=== PATIENT | female | born 1990 | race Caucasian/White ===

== ENCOUNTER 2017-02-06 16:29 | Emergency (ER) | payer OTHER ==
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
[2017-02-06 18:16] VITALS: BP 121/71
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
== END 2017-02-06 18:14 | disposition home or self-care (01) ==
LOC: MW.ED 16:29
DX: S80.01XA Contusion of right knee, initial encounter (principal); Z88.1 Allergy status to other antibiotic agents; Z88.2 Allergy status to sulfonamides; Z88.8 Allergy status to other drugs, medicaments and biological substances; V86.69XA Passenger of other special all-terrain or other off-road motor vehicle injured in nontraffic accident, initial encounter
CPT/HCPCS: 73562-26-RT; 73562-RT; 99282; 99283